=== PATIENT | male | born 1970 | race Caucasian/White ===

== ENCOUNTER 2017-12-15 10:48 | Emergency (ER) | payer OTHER ==
[~2017-12-15] VITALS: Ht 188 cm; Wt 140.6 kg
[2017-12-15] MEDS ORDERED: NEURONTIN600 MG PO (11:08)
[2017-12-15] MEDS ORDERED: VICODIN HP 10-1 EAC1 PO (11:08)
[2017-12-15] MEDS ORDERED: DICLOFENAC SODI75 MG PO (11:10)
[2017-12-15] MEDS ORDERED: BUPROPION XL300 MG PO (11:10)
[2017-12-15] MEDS ORDERED: LIPITOR40 MG PO (11:11)
[2017-12-15] MEDS ORDERED: CITALOPRAM HBR20 MG PO (11:11)
[2017-12-15] MEDS ORDERED: IBUPROFEN600 MG PO (13:42)
[2017-12-15] MEDS ORDERED: NORCO 10-325 T1 EACH PO (13:42)
== END 2017-12-15 14:18 | disposition home or self-care (01) ==
LOC: ED 10:48
PROC: 2W3CX1Z Immobilization of Right Lower Arm using Splint (ICD-10-PCS; principal; 2017-12-15)
DX: S52.571A Other intraarticular fracture of lower end of right radius, initial encounter for closed fracture (principal); S52.121A Displaced fracture of head of right radius, initial encounter for closed fracture; W17.89XA Other fall from one level to another, initial encounter; Z88.1 Allergy status to other antibiotic agents; Z79.899 Other long term (current) drug therapy; Z79.891 Long term (current) use of opiate analgesic
CPT/HCPCS: 29125; 70450; 72125; 73080; 73110; 73200; 99284

== ENCOUNTER 2018-09-05 11:52 | Emergency (ER) | payer BC, OTHER ==
[~2018-09-05] VITALS: Ht 188 cm; Wt 140.6 kg
--- OUTSIDE RECORDS SUMMARY | ~2018-09-05 | XMS | Clinical Summary ---
Demographics + + + | Address | [address] | | | [place] [address] | + + + | Home Phone | | + + + | Preferred Language | Unknown | + + + | Marital Status | | + + + | Bahai Affiliation | 1027 | + + + | Race | Unknown | + + + | Ethnic Group | Unknown | + + + Author + + + | Author | [facility] | | | and [place] | + + + | Organization | [facility] | | | and [place] | + + + | Address | Unknown | + + + | Phone | Unavailable | + + + Support + + + + + | Name | Relationship | Address | Phone | + + + + + | Rosa,Jennifer | ECON | [address] | | | | | [place] | | | | | [address] | | + + + + + Care Team Providers + +------+ + | Care Buffer Chrome Name | Role | Phone | + +------+ + | Bakari Moya MD | PP | | + +------+ + Allergies Not on File Current Medications Not on file Active Problems Not on file Resolved Problems + + + + | Problem | Noted | Resolved | | | Date | Date | + + + + | Pre-employment health screening examination | 03/31/20 | | | | 18 | 8 | + + + + Social History + +-------+ +--------+------+ | Tobacco Use | Types | Packs/Day | Years | Date | | | | | Used | | + +-------+ +--------+------+ | Never Assessed | | | | | + +-------+ +--------+------+ + + + | Sex Assigned at | Date Recorded | | | | + + + | Not on file | | + + + Plan of Treatment + + + + + | Health Maintenance | Due Date | Last Done | Comments | + + + + + | Vaccine: | | | | | Dtap/Tdap/Td (1 - | 1 | | | | Tdap) | | | | + + + + + | Vaccine: Influenza | | | | | (Season Ended) | 9 | | | + + + + + Results Not on filefrom Last 3 Months"
[~2018-09-05 11:52] MED LIST: BUPROPION XL300 MG PO; CITALOPRAM HBR20 MG PO; DICLOFENAC SODI75 MG PO; IBUPROFEN600 MG PO; LIPITOR40 MG PO; NEURONTIN600 MG PO; NORCO 10-325 T1 EACH PO; VICODIN HP 10-1 EAC1 PO
--- OUTSIDE RECORDS SUMMARY | 2018-09-05 12:02 | XMS ---
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 ENilesh VISIT COUNT (12 MO.) 2 [facility] TOTAL 2 NOTE: Visits indicate total known visits. 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
[2018-09-05] MEDS ORDERED: PROTONIX20 MG PO (12:21)
[2018-09-05] MEDS ORDERED: TESTOSTERO200 MG/1 M IM (12:22)
--- NOTE | 2018-09-06 15:22 | EKG ---
[facility] [address] [facility] [place] [address] Signed Normal sinus rhythm Minimal voltage criteria for LVH, may be normal variant Borderline ECG No previous ECGs available Confirmed by JACKSON HAN DO ([id number]) on 09/06/2018 3:21:54 PM Electronically Signed By: JACKSON HAN DO 09/06/18 1522 PATIENT NAME: ELAINE FLORIAN JESUS Electrocardiogram DATE OF : 74 PHYSICIAN: JACKSON HAN DO REPORT #: [id number] REPORT IS CONFIDENTIAL AND NOT TO BE RELEASED WITHOUT AUTHORIZATION
== END 2018-09-05 15:15 | disposition home or self-care (01) ==
LOC: ED 11:52
DX: E86.0 Dehydration (principal); R25.1 Tremor, unspecified; E11.65 Type 2 diabetes mellitus with hyperglycemia; I10 Essential (primary) hypertension; Z88.1 Allergy status to other antibiotic agents; Z79.899 Other long term (current) drug therapy; Z79.891 Long term (current) use of opiate analgesic
CPT/HCPCS: 70450; 70496; 70498; 71045; 80053; 81001; 84484; 85025; 85610; 85730; 93005; 93010; 96374; 99284-25; J2060; Q9967

== ENCOUNTER 2022-01-03 11:41 | Emergency (ER) | payer OTHER, BC ==
[~2022-01-03] VITALS: Ht 188 cm; Wt 132.0 kg
[~2022-01-03 11:41] MED LIST changes: +PROTONIX20 MG PO; +TESTOSTERO200 MG/1 M IM
--- OUTSIDE RECORDS SUMMARY | 2022-01-03 11:44 | XMS ---
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 Stephanie VISIT COUNT (12 MO.) Carmen [facility] TOTAL 1 NOTE: Visits indicate total known visits. ED/UCC VISIT TRACKING (12 MO.) 01/03/2022 11:[address] [facility] TYPE: Emergency COMPLAINT: - EXTREMITY PAIN/INJURY INPATIENT VISIT TRACKING (12 MO.) No inpatient visits to display in this time frame [id number]
[2022-01-03] MEDS ORDERED: LISINOPRIL30 MG PO (14:22)
[2022-01-03] MEDS ORDERED: GLIMEPIRIDE4 MG PO (14:22)
[2022-01-03] MEDS ORDERED: TRAZODONE HCL50 MG PO (14:23)
[2022-01-03] MEDS ORDERED: TIZANIDINE HCL4 M1 PO (14:24)
== END 2022-01-03 16:11 | disposition home or self-care (01) ==
LOC: ED 11:41
DX: S51.002A Unspecified open wound of left elbow, initial encounter (principal); E11.9 Type 2 diabetes mellitus without complications; I10 Essential (primary) hypertension; Z88.8 Allergy status to other drugs, medicaments and biological substances; Z79.899 Other long term (current) drug therapy; Z79.84 Long term (current) use of oral hypoglycemic drugs; W22.8XXA Striking against or struck by other objects, initial encounter; Y99.0 Civilian activity done for income or pay
CPT/HCPCS: 73080

== ENCOUNTER 2024-03-28 12:00 | Emergency (ER) | payer OTHER ==
[~2024-03-28] VITALS: Ht 188 cm; Wt 126.9 kg
[~2024-03-28 12:00] MED LIST changes: +GLIMEPIRIDE4 MG PO; +LISINOPRIL30 MG PO; +TIZANIDINE HCL4 M1 PO; +TRAZODONE HCL50 MG PO
[2024-03-28] MEDS ORDERED: HYDROmorphone HCL 1 MG/ML SYR IV PRN (12:15)
[2024-03-28] MEDS ORDERED: JARDIANCE10 MG PO (12:19)
[2024-03-28 15:25] VITALS: BP 178/96
== END 2024-03-28 15:25 | disposition home or self-care (01) ==
LOC: ED 12:00
DX: S40.011A Contusion of right shoulder, initial encounter (principal); E11.9 Type 2 diabetes mellitus without complications; I10 Essential (primary) hypertension; Z88.1 Allergy status to other antibiotic agents; Z79.899 Other long term (current) drug therapy; W01.0XXA Fall on same level from slipping, tripping and stumbling without subsequent striking against object, initial encounter
CPT/HCPCS: 73030; 73200; 96374; 96376; 99284-25

== ENCOUNTER 2024-10-23 08:35 | Day surgery (SDC) | payer OTHER ==
[~2024-10-23] VITALS: Ht 188 cm; Wt 118.2 kg
[~2024-10-23 08:35] MED LIST changes: +CEFAZOLIN SODIUM 2 GM/20 ML SYR IV SCH; +IBLOOD GLUCOSE TEST STRIP 1 EA TEST VI PRN; +JARDIANCE10 MG PO; +KETOROLAC TROMETHAMINE 30 MG/ML VIAL ONE; +LACTATED RINGER'S 1,000 ML IV SCH; +LIDOCAINE HCL 1% 5 ML SDV INJ ONE
[2024-10-23] MEDS ORDERED: CIALIS5 MG PO (08:55)
[2024-10-23 09:05] VITALS: BP 147/84
[2024-10-23] MEDS ORDERED: fentaNYL citrate 100 MCG/2 ML VIAL ONE (11:00)
[2024-10-23] MEDS ORDERED: MIDAZOLAM HCL 2 MG/2 ML VIAL ONE (11:00)
[2024-10-23] MEDS ORDERED: LIDOCAINE HCL 2% 5 ML SDV ONE ×2 (11:01→12:41)
[2024-10-23] MEDS ORDERED: DEXAMETHASONE SOD PHOS 4 MG/ML VIAL ONE (11:01)
[2024-10-23] MEDS ORDERED: Ropivacaine HCl 0.5% 30 ML VIAL ONE (11:01)
[2024-10-23] MEDS ORDERED: ondansetron HCL 4 MG/2 ML VIAL ONE (12:41)
[2024-10-23] MEDS ORDERED: propofoL 200 MG/20 ML VIAL ONE ×2 (12:41→13:18)
[2024-10-23] MEDS ORDERED: HYDROCODONE/ACETA 7.5/325 TAB PO PRN (13:00)
[2024-10-23] MEDS ORDERED: dexmedeTOMIDine HCl 200 MCG/2 ML VIAL ONE (13:24)
[2024-10-23] MEDS ORDERED: PROCHLORPERAZINE EDISYLATE 10 MG/2 ML VIAL IV PRN (13:30)
[2024-10-23] MEDS ORDERED: NALOXONE HCL 0.4 MG SYR IV PRN (13:30)
[2024-10-23] MEDS ORDERED: fentaNYL citrate 50 MCG/ML SDV IV PRN (13:30)
[2024-10-23] MEDS ORDERED: IBLOOD GLUCOSE TEST STRIP 1 EA TEST VI PRN (13:30)
[2024-10-23] MEDS ORDERED: ondansetron HCL 4 MG/2 ML VIAL IV PRN (13:30)
[2024-10-23] MEDS ORDERED: HYDROmorphone HCL 1 MG/ML SYR IV PRN (13:30)
[2024-10-23] MEDS ORDERED: droPERidol 5 MG/2 ML VIAL IV PRN (13:30)
[2024-10-23] MEDS ORDERED: HYDROCODON-ACE1 EA11 PO (13:50)
--- NOTE | 2024-10-23 14:10 | NUR ---
10/23/24 1410 Kenya Cedeno PATIENT OPENS HIS EYES AND OPENS HIS MOUTH. ORAL AIRWAY IS REMOVED. PATIENT DENIES PAIN. HE RETURNS TO RESTING QUIETLY WITH HIS EYES CLOSED WHEN UNSTIMULATED.
[2024-10-23] MEDS ORDERED: SEVOFLURANE 250 ML BTL INH ONE (14:22)
[2024-10-23 14:36] VITALS: BP 157/85
--- NOTE | 2024-10-23 14:53 | NUR ---
PT BACK TO DAYSURGERY FROM PACU AWAKE AND ALERT REPORTS NEEDING TO VOID. URINAL PROVIDED PT ABLE TO VOID 200ML OF CLEAR YELLOW URINE. PT DENIES PAIN AND NAUSEA.
--- NOTE | 2024-10-23 15:09 | NUR ---
PT REPORTS HE IS ON A PAIN CONTRACT WITH AN OUT OF TOWN AND HE IS AFRAID HE MAY NOT BE ABLE TO MODERN DANCER PAIN MEDS FROM DR MARADIAGA BECAUSE ITS THE SAME MEDICATION ITS A DIFFERENT DOSE BUT SAME DRUG. DR MARADIAGA NOTIFIED AND IS NOT ABLE TO CHANGE MED DUE TO PT NOT TELLING DR MARADIAGA THAT HE WAS ON A PAIN CONTRACT. PT STATES HE WILL JUST TAKE MEDS FROM PAIN
[2024-10-23 15:22] VITALS: BP 164/89
--- NOTE | 2024-10-23 15:42 | NUR ---
1515 PT REPORTS READINESS TO GO HOME DISCHARGE INSTRUCTIONS GIVE TO PT AND BOTH VOICED UNDERSTANDING. PTS HELPED HIM GET DRESSED. PT DENIES PAIN AND NAUSEA.
[2024-10-23] MEDS ORDERED: DICLOFENAC SOD 75 MG TABEC PO SCH (21:00)
--- NOTE | 2024-10-24 04:50 | OR ---
[facility] [address] [place], [place] [address] Signed DATE OF OPERATION: 10/23/2024 SURGEON: Kala Rodriguez MD PREOPERATIVE DIAGNOSIS: Impingement, right shoulder. POSTOPERATIVE DIAGNOSES: 1. Impingement, right shoulder. 2. Superior labral tear, type 3. PROCEDURE PERFORMED: Right shoulder arthroscopy with debridement of labral tear and subacromial decompression. ASPHALT PAVING SUPERVISOR: Rosa Padilla PA-C. Rosa was present, critical for all portions of the procedure. ANESTHESIA: General. BLOOD LOSS: Minimal. BRIEF HISTORY: Abdiaziz is a 54-year-old gentleman with progressive worsening of shoulder pain, nonresponsive to nonoperative treatment. Risks, benefits, and alternatives of operative treatment were discussed with him. He elected to proceed. Once consent was obtained, he was taken to the operating room. After adequate anesthesia, he was placed in a beach chair position. All downside pressure points were well padded. The right shoulder was prepped and draped in a standard sterile fashion. The shoulder was injected with 15 mL 0.25% Marcaine with epinephrine as was subacromial space. Standard posterior portal was made. The scope was introduced in the shoulder. ARTHROSCOPIC FINDINGS: There was a complex large type 3 tear of the superior labrum extending down the biceps about a cm. The remainder of the labrum was intact. The biceps anchor was intact. The glenohumeral surfaces were intact. The undersurface of the rotator cuff was intact. There was moderate erythema throughout. The subacromial space showed marked bursitis, particularly posteriorly. Electronically Signed By: KALA RODRIGUEZ MD 10/24/24 0450 PATIENT NAME: ABDIAZIZ FLORIAN OPERATIVE REPORT DATE OF : 74 REPORT #: [id number] PHYSICIAN: KALA RODRIGUEZ MD PCP: [facility] REPORT IS CONFIDENTIAL AND NOT TO BE RELEASED WITHOUT AUTHORIZATION [facility] [address] [place], [place] [address] Signed DESCRIPTION OF OPERATION: Diagnostic arthroscopy was undertaken as noted above. Standard anterior portal was made using an outside in technique. The labral tear was debrided and the base of the biceps attachment to the glenoid was evaluated and found to be intact. The scope was then withdrawn, placed in subacromial space and using the Mitek VAPR and the shaver, we were able to remove the bursitis and visualize the superior rotator cuff, which was found to be intact. The undersurface of the acromion was type 2. The scope was withdrawn. Portals were closed with 3-0 nylon and the shoulder was injected with 60 mg of Toradol. He tolerated the procedure well. All sponge, needle, and instrument counts were correct. Kala Rodriguez MD BA/CARMENL /[id number] Copies: ~ Electronically Signed By: KALA RODRIGUEZ MD 10/24/24 0450 PATIENT NAME: ABDIAZIZ FLORIAN OPERATIVE REPORT DATE OF : 74 REPORT #: [id number] PHYSICIAN: KALA RODRIGUEZ MD PCP: AMBER LONG [facility] REPORT IS CONFIDENTIAL AND NOT TO BE RELEASED WITHOUT AUTHORIZATION
== END 2024-10-23 15:30 | disposition home or self-care (01) ==
LOC: DS 08:35
PROVIDERS: ATTEND Specialist
PROC: 0RNJ4ZZ Release Right Shoulder Joint, Percutaneous Endoscopic Approach (ICD-10-PCS; principal; 2024-10-23 13:50)
DX: M25.811 Other specified joint disorders, right shoulder (principal); S43.411A Sprain of right coracohumeral (ligament), initial encounter; X58.XXXA Exposure to other specified factors, initial encounter; M75.51 Bursitis of right shoulder; G89.18 Other acute postprocedural pain; Z88.1 Allergy status to other antibiotic agents; Z79.899 Other long term (current) drug therapy; I10 Essential (primary) hypertension; E11.9 Type 2 diabetes mellitus without complications; E78.00 Pure hypercholesterolemia, unspecified; E66.9 Obesity, unspecified
CPT/HCPCS: 01630; 64415; J0690; J1100; J1885; J2003; J2250; J2405; J2704; J2795; J3010; J7121

== ENCOUNTER 2025-02-21 08:32 | Day surgery (SDC) | payer OTHER ==
[~2025-02-21] VITALS: Ht 185.4 cm; Wt 123.0 kg
[~2025-02-21 08:32] MED LIST changes: -CEFAZOLIN SODIUM 2 GM/20 ML SYR IV SCH; +CIALIS5 MG PO; +HYDROCODON-ACE1 EA10 PO; +HYDROCODON-ACE1 EA11 PO; -KETOROLAC TROMETHAMINE 30 MG/ML VIAL ONE; +NAPROSYN500 MG PO
[2025-02-21 08:45] VITALS: BP 158/85
[2025-02-21] MEDS ORDERED: METFORMIN HCL500 MG PO (08:53)
[2025-02-21] MEDS ORDERED: LIDOCAINE HCL 2% 5 ML SDV ONE (10:25)
--- NOTE | 2025-02-21 10:59 | NUR ---
02/21/25 Natalie Donato 1054: PT ARRIVES TO PACU NON REACTIVE. REPORT RECEIVED FROM OCCUPATIONAL THERAPY AIDE AND OPERATING MANAGER. JEANNE 1059: PT IS AUDIBLY PASSING GAS.
[2025-02-21 11:37] VITALS: BP 122/79
== END 2025-02-21 11:48 | disposition home or self-care (01) ==
LOC: DS 08:32
PROVIDERS: ATTEND Surgery
PROC: 0DJD8ZZ Inspection of Lower Intestinal Tract, Via Natural or Artificial Opening Endoscopic (ICD-10-PCS; principal; 2025-02-21 09:50)
DX: Z12.11 Encounter for screening for malignant neoplasm of colon (principal); I10 Essential (primary) hypertension; E11.40 Type 2 diabetes mellitus with diabetic neuropathy, unspecified; F32.9 Major depressive disorder, single episode, unspecified; K21.9 Gastro-esophageal reflux disease without esophagitis; E29.1 Testicular hypofunction; E66.9 Obesity, unspecified; Z68.37 Body mass index [BMI] 37.0-37.9, adult; Z79.899 Other long term (current) drug therapy; Z88.1 Allergy status to other antibiotic agents; Z88.8 Allergy status to other drugs, medicaments and biological substances
CPT/HCPCS: 00811; J2003; J2704; J7121